=== PATIENT | male | born 1995 | race African-American/Black ===

== ENCOUNTER 2019-06-12 12:21 | Inpatient (IN) ==
[2019-06-12 12:45] LABS: Microscopic, Urine URINE MICROSCOPIC (MICROSCOPIC)
[2019-06-12 12:46] LABS: Appearance,Urine SL CLOUDY (Clear); Bilirubin,Urine Negative (Negative); Blood, Urine 2+ (Negative); Color,Urine YELLOW (Yellow); Glucose,Urine (UA) Negative (Negative); Ketones,Urine Negative (Negative); Leukocyte Esterase,Urine 2+ (Negative); Protein,Urine 2+ (Negative); Urobilinogen,Urine 0.2 EU/dl (0.2)
--- NOTE | 2019-06-12 12:51 | Emergency Department Note ---
ED Disposition Clinical Impression: UTI (urinary tract infection) Qualifiers: Urinary tract infection type: acute cystitis Hematuria presence: with hematuria Qualified Code(s): N30.01 - Acute cystitis with hematuria Fever Qualifiers: Fever type: due to other condition Qualified Code(s): R50.81 - Fever presenting with conditions classified elsewhere Disposition: Admitted As Inpatient Condition on Discharge: Good - Critical Care Critical Care Time: No Attestation: On 06/12/19, the high probability of a clinically significant, sudden or life threatening deterioration of the following system(s) required my full and direct attention, intervention and personal management. The time I documented below is in addition to time spent performing reported procedures but includes the following listed in this critical care notation. Medical Decision Making - Medical Records Medical records reviewed: Yes: I reviewed the patient's medical records. - Rommel Inquiry Pt receiving controlled substance: Yes Rommel was queried for this patient: No Reason not queried -: Rommel login issues Risks and benefits of using a controlled substance: were discussed with pt by me Vital Signs: 06/12/19 12:29 Temperature 100.9 F H Temperature Source Oral Pulse Rate [Left Radial] 115 H Respiratory Rate 24 Blood Pressure [Right Arm] 150/90 H Blood Pressure Mean [Right Arm] 110 02 Sat by Pulse Oximetry 98 Oxygen Delivery Method Room Air - Lab Data Lab Results 06/12/19 12:30: Urine Color Yellow, Urine Appearance Sl cloudy, Urine pH 6.0, Ur Specific [place] 1.020, Urine Protein 2+, Urine Glucose (UA) Negative, Urine K etones Negative, Urine Blood 2+, Urine Nitrate Positive, Urine Bilirubin Negative, Urine Urobilinogen 0.2, Ur Leukocyte Esterase 2+ A, Urine RBC 5-10, Urine WBC 10-20, Ur Squamous Epith Cells 3-5, Urine Bacteria 2+ 06/12/19 12:44: WBC 10.0, RBC 4.97, Hgb 15.4, Hct 44.4, MCV 89.5, MCH 31.1, MCHC 34.8, RDW 14.0, Plt Count 186, MPV 9.3, Neut % (Auto) 81.5 H, Lymph % (Auto) 10.1, [place] % (Auto) 6.7, Eos % (Auto) 1.4, Baso % (Auto) 0.2, Neut # (Auto) 8.2 H, Lymph # (Auto) 1.0, [place] # (Auto) 0.7, Eos # (Auto) 0.1, Baso # (Auto) 0.0 06/12/19 12:44: Sodium 135 L, Potassium 4.1, Chloride 97 L, Carbon Dioxide 26, Anion Gap 16.1 H, BUN 15, Creatinine 2.05 H, Estimated Creat Clear 65, Estimated GFR 40 L, Est GFR ( Amer) 49 L, Glucose 103, Calcium 9.4, Lipase 65 L 06/12/19 12:44: Lactate 1.0 06/12/19 12:44: Total Bilirubin 0.6, Direct Bilirubin 0.2, Indirect Bilirubin 0.4, AST 19, ALT 34, Alkaline Phosphatase 93, Total Protein 8.9 H, Albumin 4.6 Result diagrams: 06/12/19 12:44 06/12/19 12:44 Orders (Tests/Meds): ED MEDICATIONS Discontinued Medications Generic Name Dose Route Start Last Admin Trade Name Freq PRN Reason Stop Dose Admin Acetaminophen 1,000 mg 06/12/19 12:34 06/12/19 12:51 Tylenol 500mg Tablet PO 06/12/19 12:35 1,000 mg ONCE ONE Administration Sodium Chloride 1,000 mls @ 999 mls/hr 06/12/19 12:45 06/12/19 12:51 Sod Chlor 0.9% 1000ml Bag IV 06/12/19 13:45 999 mls/hr .[id number] RAMAN Administration Ceftriaxone Sodium 1 gm/ 50 mls @ 100 mls/hr 06/12/19 12:35 06/12/19 12:51 Sodium Chloride IV 06/12/19 13:04 100 mls/hr ONCE STA Administration Protocol Morphine Sulfate 4 mg 06/12/19 12:35 06/12/19 12:51 Morphine 4mg/Ml Syringe IV 06/12/19 12:36 4 mg ONCE ONE Administration Ondansetron HCl 4 mg 06/12/19 13:00 06/12/19 13:02 Zofran 4mg/2ml Vial IV 06/12/19 13:01 4 mg ONCE ONE Administration ORDERS Category Date Time Status CT abdomen pelvis wo con Stat Cat Scan 06/12/19 13:10 Taken Blood Culture Stat Micro 06/12/19 12:44 Received Urine Culture Stat Micro 06/12/19 12:30 Received - CT Data CT Scan: Abdomen, Pelvis Time Received: 14:[address] Reviewed: Yes: I discussed the CT results w/the radiologist Findings Narrative: Patient with dilation of the right ureter which goes into a diverticulum at the bladder, all of which is slightly thickened. No obvious stone. Medical Decision Narrative: Patient's mother states he has a long history of problems with his right renal system. She is uncertain what other CT scans have shown, but does know that he has chronic issues with UTI secondary to problems on this side. He has already tried Bactrim, amoxicillin for UTI and has recalcitrant UTI. Will need admission for IV antibiotics. Creatinine is actually better than baseline according to the mother with a creatinine here of 2 and his baseline being around 4. He is given fluids, Rocephin. I discussed this case with Dr. Sun, admitting for Dr. Euceda, and patient will be admitted for further management. There are no signs of appendicitis, bowel obstruction, perforation, diverticulitis on CT scan. General Adult HPI - General Chief complaint: PAIN Stated complaint: fever and severe pain in rt side Time Seen by Provider: 06/12/19 12:49 Mode of Arrival: Ambulatory Limitations: No Limitations Description of Symptoms (Recalled from ER Triage Doc. by RN): to ed per pvt car with c/o rt side pain starting yesterday pt c/o nausea, fever. pt states took tylenol at 9am. - History of Present Illness HPI narrative: This is a 23-year-old male with a past medical history significant for HIV, schizophrenia who presents to the emergency department for right side pain that started yesterday. Whenever he urinates, the pain is worse. He is also had subjective fever and chills today at home. He has nausea, but no vomiting. He cannot remember the last bowel movement. No history of abdominal surgeries. He takes Bactrim daily prophylactically. No other exacerbating or alleviating factors. Caregiver notes that he did just recently finished a course of amoxici llin for a UTI. He has chronic problems with his right kidney and collecting system, history of frequent UTIs, and chronic renal failure with a normal creatinine of around 4. - Related Data Home Medications Medication Instructions Recorded Confirmed Abacavir/Dolutegravir/Lamivudi 1 tab PO DAILY 06/12/19 06/12/19 [Triumeq 600-50-300 mg Tablet] Benztropine Mesylate 0.5 mg PO BID 06/12/19 06/12/19 Sulfamethoxazole/Trimethoprim 1 each PO BID 06/12/19 06/12/19 [Bactrim DS tablet] risperiDONE [Risperidone] 3 mg PO BID 06/12/19 06/12/19 Allergies Allergy/AdvReac Type Severity Reaction Status Date / Time No Known Allergies Allergy Verified 06/12/19 12:48 [facility] History - Hepatitis A Screen Drug use history?: No High risk sexual behaviors?: No History of sexually transmitted infection?: No Currently employed?: No Childcare worker?: No Do you have indoor plumbing?: Yes Do you have electricity?: Yes Attestation statement:: This patient has been screened for Hepatitis A risk factors. I have reviewed the patient's past medical history: Yes Comment: HIV, schizophrenia - Social History Alcohol Intake: never Occupational Status: other ROS Obtained: Yes All systems reviewed & no additional complaints Physical Exam - General General appearance: alert, in distress, other (In mild distress secondary to pain) - Head Head exam: atraumatic, normocephalic, normal inspection - ENT ENT exam: Present: normal oropharynx, mucous membranes dry - Neck Neck exam: Present: normal inspection. Absent: tenderness, lymphadenopathy - Respiratory Respiratory exam: Present: normal lung sounds bilaterally. Absent: respiratory distress - Cardiovascular Cardiovascular exam: Present: normal rhythm, tachycardia. Absent: JVD - Abdominal Exam Abdominal exam: Present: soft, normal bowel sounds. Absent: distention, tenderness, guarding - Back Exam Back exam: Absent: CVA tenderness (R), CVA tenderness (L) - Neurological Exam Neurological exam: Present: alert, oriented X3 - Skin Skin exam: Present: warm, dry
[2019-06-12 12:53] LABS: Basophils % 0.2 % (0.1-2.0); Eosinophils # 0.1 K/mm3 (0.0-0.4); Eosinophils % 1.4 % (0.1-12.0); Hematocrit 44.4 % (42.0-52.0); Hemoglobin 15.4 g/dL (14.1-18.0); Lymphocytes % 10.1 % (10-50); Mean Corpuscular HGB Conc 34.8 g/dL (31.8-35.4); Mean Corpuscular Volume 89.5 fl (80-94); Mean Platelet Volume 9.3 fl (7.4-10.4); Monocytes # 0.7 K/mm3 (0.1-1.0); Monocytes % 6.7 % (1.7-9.3); Neutrophils # 8.2 K/mm3 (1.8-7.8); Neutrophils % 81.5 % (37.0-80.0); Platelet Count 186 K/mm3 (142-424); Red Blood Count 4.97 M/mm3 (4.60-6.20)
[2019-06-12 12:56] LABS: Bacteria,Urine 2+ /lpf
[2019-06-12 13:01] LABS: Anion Gap 16.1 mEq/L (5-15); Calcium 9.4 mg/dL (8.5-10.1)
[2019-06-12 13:07] LABS: Albumin Level 4.6 gm/dL (3.4-5.0); Bilirubin,Direct 0.2 mg/dL (0.0-0.2); Bilirubin,Indirect 0.4 mg/dL (0.0-0.9); Bilirubin,Total 0.6 mg/dL (0.2-1.0); Total Protein,Serum 8.9 gm/dL (6.4-8.2)
--- NOTE | 2019-06-12 15:07 | Pharmacy Consult Notes ---
[facility] Pharmacy VTE Monitoring - Patient Demographics Admission date: 06/12/19 Report Date: 06/12/19 Time: 15:06 Allergies/Adverse Reactions: Patient Allergies No Known Allergies Allergy (Verified 06/12/19 12:48) Height: 1.65 m Weight: 82.554 kg Patient Problems: Current Active Problems UTI (urinary tract infection) (Acute) Fever (Acute) - VTE Risk Labs: VTE Related Lab Results Hgb 15.4 g/dL (14.1-18.0) 06/12/19 12:44 Hct 44.4 % (42.0-52.0) 06/12/19 12:44 Plt Count 186 K/mm3 (142-424) 06/12/19 12:44 BUN 15 mg/dL (7-18) 06/12/19 12:44 Creatinine 2.05 mg/dL (0.70-1.30) H 06/12/19 12:44 Estimated Creat Clear 65 mL/min (50-200) 06/12/19 12:44 Clinical Trial Participant: No - Prophylaxis VTE Prophylaxis Ordered?: Yes Types of VTE Prophylaxis: TEDS Knee High, IPCS Knee High
--- NOTE | 2019-06-12 17:52 | History & Physical Report ---
*Admission Date: 06/12/19 *Chief complaint: Fever and right flank pain *History of present illness: 23-year-old male with schizophrenia, HIV, and history of recurring urinary tract infections for which he is on prophylaxis with Bactrim presented to the ER with right flank pain and fevers at home. He has not had associated nausea, vomiting, diarrhea. Patient has been taking his Bactrim for prophylaxis as directed and just completed a course of amoxicillin for a urinary tract infection. Guardian is unaware if there was a urine culture associated with treatment of that infection. Nonetheless when his symptoms began he was brought to the emergency department and diagnosed with a urinary tract infection. Patient was febrile in the ER. CT scan showed dilation of the right ureter along with a bladder diverticulum in the right bladder. Patient was given intravenous Rocephin and admitted for IV fluids, pain control and treatment of urinary tract infection that has failed outpatient treatment [facility] History I have reviewed the patient's past medical history: Yes Medical History: Reports:: Urinary Tract Infection Denies:: Cancer, Diabetes Mellitus Type 1, Diabetes Mellitus Type 2, MRSA *Have you ever received a pneumonia vaccine?: Yes *Have you received a flu vaccine this season?: Yes Other Medical History: Reports: HIV Other Surgeries: Yes: No Previous Surgery Amputation: No Fractures: No - *Social History Educational Level: Completed High School Smoking Status: Never smoker Alcohol Intake: never *Occupational Status:: other Housing: house Household Members: family *Travel in the last 8 weeks: None - Psychiatric History Pschychiatric History:: Reports:: Schizophrenia Family Hx:: Adopted, Mental illness Review of Systems - Constitutional Denies body ache(s), Denies chills, Denies lack of energy, Denies malaise - *Cardiovascular Denies chest pain at rest - *Respiratory Denies change in phlegm color - *Gastrointestinal Reports abdominal pain, Denies change in bowel habits - *Genitourinary Reports side pain, Denies difficulty urinating, Denies painful urination Meds Home Medications Medication Instructions Recorded Confirmed Type Abacavir/Dolutegravir/Lamivudi 1 tab PO DAILY 06/12/19 06/12/19 History [Triumeq 600-50-300 mg Tablet] Benztropine Mesylate 0.5 mg PO BID 06/12/19 06/12/19 History Sulfamethoxazole/Trimethoprim 1 each PO BID 06/12/19 06/12/19 History [Bactrim DS tablet] risperiDONE [Risperidone] 3 mg PO BID 06/12/19 06/12/19 History Allergies Allergy/AdvReac Type Severity Reaction Status Date / Time No Known Allergies Allergy Verified 06/12/19 12:48 Exam Vital signs and Labs for Last 24 Hours: Temp Pulse Resp BP Pulse Ox 102.5 F H 143 H 22 159/100 H 93 L 06/12/19 17:25 06/12/19 16:00 06/12/19 16:00 06/12/19 16:00 06/12/19 16:00 Laboratory Results - last 24 hr 06/12/19 12:30: Urine Color Yellow, Urine Appearance Sl cloudy, Urine pH 6.0, Ur Specific [place] 1.020, Urine Protein 2+, Urine Glucose (UA) Negative, Urine Ketones Negative, Urine Blood 2+, Urine Nitrate Positive, Urine Bilirubin Negative, Urine Urobilinogen 0.2, Ur Leukocyte Esterase 2+ A, Urine RBC 5-10, Urine WBC 10-20, Ur Squamous Epith Cells 3-5, Urine Bacteria 2+ 06/12/19 12:44: WBC 10.0, RBC 4.97, Hgb 15.4, Hct 44.4, MCV 89.5, MCH 31.1, MCHC 34.8, RDW 14.0, Plt Count 186, MPV 9.3, Neut % (Auto) 81.5 H, Lymph % (Auto) 10.1, [place] % (Auto) 6.7, Eos % (Auto) 1.4, Baso % (Auto) 0.2, Neut # (Auto) 8.2 H, Lymph # (Auto) 1.0, [place] # (Auto) 0.7, Eos # (Auto) 0.1, Baso # (Auto) 0.0 06/12/19 12:44: Sodium 135 L, Potassium 4.1, Chloride 97 L, Carbon Dioxide 26, Anion Gap 16.1 H, BUN 15, Creatinine 2.05 H, Estimated Creat Clear 65, Estimated GFR 40 L, Est GFR ( Amer) 49 L, Glucose 103, Calcium 9.4, Lipase 65 L 06/12/19 12:44: Lactate 1.0 06/12/19 12:44: Total Bilirubin 0.6, Direct Bilirubin 0.2, Indirect Bilirubin 0.4, AST 19, ALT 34, Alkaline Phosphatase 93, Total Protein 8.9 H, Albumin 4.6 I & O for Last 24 hours: Intake & Output 06/10/19 06/11/19 06/12/19 06/13/19 11:59 11:59 11:59 11:59 Weight 182 lb 4 oz Narrative: Patient is in no distress and sitting on side of the bed. He is warm to the touch. Pupils are reactive to light. Oropharynx is moist and clear. Neck has no lymphadenopathy. Lungs are clear. Heart rate is tachycardic. Abdomen is soft, nontender, nondistended. There is no CVA tenderness. Extremities are warm to the touch. Assessment and Plan (1) Complicated urinary tract infection Current visit: Yes Status: Acute Category: Medical Code(s): N39.0 - Urinary tract infection, site not specified Patient is been admitted and placed on IV Rocephin and IV normal saline. Continue fluids overnight. (2) HIV disease Current visit: Yes Status: Chronic Category: Medical Code(s): B20 - Human immunodeficiency virus [HIV] disease Continue home medications (3) Schizophrenia Current visit: Yes Status: Chronic Category: Medical Code(s): F20.9 - Schizophrenia, unspecified Continue home medications
[2019-06-13 06:35] LABS: Basophils % 0.2 % (0.1-2.0); Eosinophils % 0.1 % (0.1-12.0); Hematocrit 36.7 % (42.0-52.0); Lymphocytes # 1.1 K/mm3 (0.7-4.5); Lymphocytes % 8.3 % (10-50); Mean Corpuscular Volume 89.7 fl (80-94); Mean Platelet Volume 10.1 fl (7.4-10.4); Monocytes # 1.4 K/mm3 (0.1-1.0); Monocytes % 10.5 % (1.7-9.3); Neutrophils # 11.1 K/mm3 (1.8-7.8); Neutrophils % 80.9 % (37.0-80.0); Platelet Count 139 K/mm3 (142-424); Red Blood Count 4.09 M/mm3 (4.60-6.20); Red Cell Distribution Width 13.9 % (11.5-17.5); White Blood Count 13.7 K/mm3 (4.8-10.8)
[2019-06-13 06:58] LABS: Albumin Level 3.2 gm/dL (3.4-5.0); Albumin/Globulin Ratio 0.9 (1.1-1.8); Anion Gap 15.6 mEq/L (5-15); Bilirubin,Total 0.5 mg/dL (0.2-1.0); Globulin 3.7 gm/dl (1.3-3.2); Total Protein,Serum 6.9 gm/dL (6.4-8.2)
[2019-06-13 07:46] LABS: Hemoglobin 12.6 g/dL (14.1-18.0)
--- NOTE | 2019-06-13 08:31 | Progress Note ---
Internal Medicine - PN: Subj *Date: 06/13/19 *Time: 08:30 Interval history: Patient did well overnight. Feels much better. Has been eating some breakfast. He has no complaints. Exam Vital signs and Labs for Last 24 Hours: Temp Pulse Resp BP Pulse Ox 99.1 F 102 H 22 137/66 99 06/13/19 08:00 06/13/19 08:00 06/13/19 08:00 06/13/19 08:00 06/13/19 08:00 Laboratory Results - last 24 hr 06/12/19 12:30: Urine Color Yellow, Urine Appearance Sl cloudy, Urine pH 6.0, Ur Specific [place] 1.020, Urine Protein 2+, Urine Glucose (UA) Negative, Urine Ketones Negative, Urine Blood 2+, Urine Nitrate Positive, Urine Bilirubin Negative, Urine Urobilinogen 0.2, Ur Leukocyte Esterase 2+ A, Urine RBC 5-10, Urine WBC 10-20, Ur Squamous Epith Cells 3-5, Urine Bacteria 2+ 06/12/19 12:44: WBC 10.0, RBC 4.97, Hgb 15.4, Hct 44.4, MCV 89.5, MCH 31.1, MCHC 34.8, RDW 14.0, Plt Count 186, MPV 9.3, Neut % (Auto) 81.5 H, Lymph % (Auto) 10.1, [place] % (Auto) 6.7, Eos % (Auto) 1.4, Baso % (Auto) 0.2, Neut # (Auto) 8.2 H, Lymph # (Auto) 1.0, [place] # (Auto) 0.7, Eos # (Auto) 0.1, Baso # (Auto) 0.0 06/12/19 12:44: Sodium 135 L, Potassium 4.1, Chloride 97 L, Carbon Dioxide 26, Anion Gap 16.1 H, BUN 15, Creatinine 2.05 H, Estimated Creat Clear 65, Estimated GFR 40 L, Est GFR ( Amer) 49 L, Glucose 103, Calcium 9.4, Lipase 65 L 06/12/19 12:44: Lactate 1.0 06/12/19 12:44: Total Bilirubin 0.6, Direct Bilirubin 0.2, Indirect Bilirubin 0.4, AST 19, ALT 34, Alkaline Phosphatase 93, Total Protein 8.9 H, Albumin 4.6 06/13/19 06:05: WBC 13.7 H D, RBC 4.09 L, Hgb 12.6 L D, Hct 36.7 L, MCV 89.7, MCH 30.5, MCHC 34.0, RDW 13.9, Plt Count 139 L D, MPV 10.1, Neut % (Auto) 80.9 H , Lymph % (Auto) 8.3 L, [place] % (Auto) 10.5 H, Eos % (Auto) 0.1, Baso % (Auto) 0.2, Neut # (Auto) 11.1 H, Lymph # (Auto) 1.1, [place] # (Auto) 1.4 H, Eos # (Auto) 0.0, Baso # (Auto) 0.0 06/13/19 06:05: Sodium 135 L, Potassium 3.6, Chloride 101, Carbon Dioxide 22, Anion Gap 15.6 H, BUN 16, Creatinine 2.01 H, Estimated Creat Clear 64, Estimated GFR 41 L, Est GFR ( Amer) 50 L, Glucose 111 H, Total Bilirubin 0.5, AST 19, ALT 28, Alkaline Phosphatase 75, Total Protein 6.9, Albumin 3.2 L D, Globulin 3.7 H, Albumin/Globulin Ratio 0.9 L I & O for Last 24 hours: Intake & Output 06/10/19 06/11/19 06/12/19 06/13/19 11:59 11:59 11:59 11:59 Intake Total 2083 / 2083 Output Total 250 / 250 Balance 1833 / 1833 Weight 175 lb 5 oz Microbiology Reports for the Last 24 Hours: Microbiology 06/12/19 12:30 Urine,Clean Catch Urine Culture - Preliminary Gram Negative Rods Narrative: Pleasant, responsive. Somewhat stoic with lack of conversation but that seems to be his normal affect. Anterior lung [place] are clear. Heart rate regular. No JVD. ENT exam otherwise clear. No peripheral edema or rash noted. Abdomen soft and nontender. Logic exam intact Assessment and Plan (1) Complicated urinary tract infection Current visit: Yes Status: Acute Category: Medical Code(s): N39.0 - Urinary tract infection, site not specified (2) HIV disease Current visit: Yes Status: Chronic Category: Medical Code(s): B20 - Human immunodeficiency virus [HIV] disease (3) Schizophrenia Current visit: Yes Status: Chronic Category: Medical Code(s): F20.9 - Schizophrenia, unspecified - Assessment and plan all Dx Assessment and Plan for all problems:: Gram-negative rods in urine. Continue aggressive IV antibiotic therapy. Chronic kidney disease seems to be at baseline in fact mom states his creatinine is better than it was at nephrology office last week
[2019-06-13 08:34] LABS: Calcium 8.3 mg/dL (8.5-10.1)
--- NOTE | 2019-06-14 08:35 | Discharge Summary ---
General - General Admission date:: 06/12/19 Discharge date: 06/14/19 HPI HPI: 23-year-old male with schizophrenia, HIV, and history of recurring urinary tract infections for which he is on prophylaxis with Bactrim presented to the ER with right flank pain and fevers at home. He has not had associated nausea, vomiting, diarrhea. Patient has been taking his Bactrim for prophylaxis as directed and just completed a course of amoxicillin for a urinary tract infection. Guardian is unaware if there was a urine culture associated with treatment of that infection. Nonetheless when his symptoms began he was brought to the emergency department and diagnosed with a urinary tract infection. Patient was febrile in the ER. CT scan showed dilation of the right ureter along with a bladder diverticulum in the right bladder. Patient was given intravenous Rocephin and admitted for IV fluids, pain control and treatment of urinary tract infection that has failed outpatient treatment Hospital Course Hospital Course: Patient was admitted, tolerated IV fluids well. Creatinine stabilized at 2.0 which is apparently better than his baseline according to his mother. Patient was treated with ceftriaxone and he also tolerated this well. Urine cultures returned showing greater than 100,000 colonies of Enterobacter species, resistant to amoxicillin/Augmentin but sensitive to cephalosporins. This morning he was given 1 more dose of intravenous ceftriaxone, and I will discharge him on 7 days of cefdinir 300 twice daily. 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 Objective Vital signs: Temp Pulse Resp BP Pulse Ox 98.6 F 85 20 122/71 98 06/14/19 07:57 06/14/19 07:57 06/14/19 07:57 06/14/19 07:57 06/14/19 07:57 Narrative: Patient is pleasant, talkative. No distress. Lungs are clear, heart rate regular. Abdomen soft. Oropharynx clear. ENT exam otherwise clear. Neurologically intact. Results Labs on day of discharge: Labs from last 24 hours 06/13/19 06:05 Calcium 8.3 L D DS: Diagnosis - Discharge Diagnosis (1) Complicated urinary tract infection Status: Acute (2) HIV disease Status: Chronic (3) Schizophrenia Status: Chronic Discharge Plan - Patient Discharge Instructions ACTIVITY: Continue current activity DIET: continue same diet Patient Instructions: DI for HIV, DI for Urinary Tract Infection (UTI) - Follow up Plan Disposition: Home, Self-Fdc Medications: Home Medications Medication Instructions Recorded Confirmed Type Abacavir/Dolutegravir/Lamivudi 1 tab PO DAILY 06/12/19 06/12/19 History [Triumeq 600-50-300 mg Tablet] Benztropine Mesylate 0.5 mg PO BID 06/12/19 06/12/19 History Sulfamethoxazole/Trimethoprim 1 each PO BID 06/12/19 06/12/19 History [Bactrim DS tablet] risperiDONE [Risperidone] 3 mg PO BID 06/12/19 06/12/19 History Cefdinir [Omnicef 300mg Capsule] 300 mg PO BID #14 cap 06/14/19 Rx Prescriptions/Medication Reconciliation: New Cefdinir [Omnicef 300mg Capsule] 300 mg PO BID #14 cap Continued Sulfamethoxazole/Trimethoprim [Bactrim DS tablet] 1 each PO BID risperiDONE [Risperidone] 3 mg PO BID Benztropine Mesylate 0.5 mg PO BID Abacavir/Dolutegravir/Lamivudi [Triumeq 600-50-300 mg Tablet] 1 tab PO DAILY - Problem Reconciliation Problems Reviewed?: Yes
== END 2019-06-14 10:58 | disposition home or self-care (01) | DRG 690 ==
LOC: ER 12:21 → 2ND 12:21 → OBSVTOIN 14:39 → 2ND 15:25
PROVIDERS: ADMIT Family Medicine; ATTEND Internal Medicine Adolescent Medicine
CPT/HCPCS: 36415; 74176; 80048; 80053; 80076; 81001; 83605; 83690; 85025; 87040; 87086; 87088; 87186; 96365; 96367; 96375; 99284; J2405

== ENCOUNTER → 2019-06-23 15:26 | Outpatient (CLI) | payer MEDICARE, MEDICAID, SELFPAY ==
[2019-06-23 15:30] LABS: Microscopic, Urine URINE MICROSCOPIC (MICROSCOPIC)
[2019-06-23 15:47] LABS: Appearance,Urine CLEAR (Clear); Bilirubin,Urine Negative (Negative); Blood, Urine Negative (Negative); Color,Urine YELLOW (Yellow); Glucose,Urine (UA) Negative (Negative); Ketones,Urine Negative (Negative); Leukocyte Esterase,Urine Negative (Negative); Nitrate,Urine Negative (Negative); PH,Urine 6.5 (5.0-8.5); Protein,Urine Negative (Negative); Urobilinogen,Urine 0.2 EU/dl (0.2)
[2019-06-23 15:54] LABS: Basophils % 0.9 % (0.1-2.0); Eosinophils # 0.1 K/mm3 (0.0-0.4); Eosinophils % 1.7 % (0.1-12.0); Hematocrit 42.1 % (42.0-52.0); Hemoglobin 13.1 g/dL (14.1-18.0); Lymphocytes # 2.6 K/mm3 (0.7-4.5); Lymphocytes % 58.2 % (10-50); Mean Corpuscular HGB Conc 31.2 g/dL (31.8-35.4); Mean Corpuscular Hemoglobin 28.7 pg (27.0-31.2); Mean Platelet Volume 8.4 fl (7.4-10.4); Monocytes # 0.3 K/mm3 (0.1-1.0); Monocytes % 6.3 % (1.7-9.3); Neutrophils # 1.5 K/mm3 (1.8-7.8); Neutrophils % 32.9 % (37.0-80.0); Platelet Count 350 K/mm3 (142-424); Red Blood Count 4.58 M/mm3 (4.60-6.20); Red Cell Distribution Width 15.1 % (11.5-17.5); White Blood Count 4.5 K/mm3 (4.8-10.8)
[2019-06-23 15:58] LABS: MANUAL DIFFERENTIAL MANUAL DIFFERENTIAL (MANUAL DIFF)
[2019-06-23 16:15] LABS: WBC,Urine Occasional #/hpf (0-3)
[2019-06-23 16:16] LABS: Bacteria,Urine Trace /lpf
[2019-06-23 16:25] LABS: Alanine Aminotransferase 64 U/L (12-78); Albumin Level 3.8 gm/dL (3.4-5.0); Albumin/Globulin Ratio 1.2 (1.1-1.8); Alkaline Phosphatase 83 U/L (46-116); Anion Gap 13.2 mEq/L (5-15); Aspartate Amino Transferase 21 U/L (15-37); Bilirubin,Total 0.1 mg/dL (0.2-1.0); Blood Urea Nitrogen 12 mg/dL (7-18); Calcium 8.7 mg/dL (8.5-10.1); Carbon Dioxide 27 mmol/L (21.0-32.0); Chloride 105 mmol/L (98-107); Creatinine,Serum 1.44 mg/dL (0.70-1.30); Estimated Glomerular Filt Rate 60 ml/min (>60); GFR (African American) 73 ML/MIN (>60); Globulin 3.3 gm/dl (1.3-3.2); Glucose 100 mg/dL (74-106); Potassium 4.2 mmoL/L (3.5-5.1); Sodium 141 mmol/L (136-145); Total Protein,Serum 7.1 gm/dL (6.4-8.2)
[2019-06-23 18:24] LABS: Eosinophils % 1 % (0-3); Lymphocytes % 76 % (10-50); Monocytes % 3 % (2-9); Neutrophils % 20 % (42-76); Platelet Estimate Normal; RBC Morphology Normal; Total Cells Counted 100
== END ==
PROVIDERS: Visit Provider Internal Medicine Adolescent Medicine
DX: N12 Tubulo-interstitial nephritis, not specified as acute or chronic (principal); N18.3 Chronic kidney disease, stage 3 (moderate)
CPT/HCPCS: 36415; 80053; 81001; 85007; 85025

== ENCOUNTER 2020-04-15 23:49 | Emergency (ER) | payer MEDICARE, MEDICAID, SELFPAY ==
[2020-04-16] VITALS (10 sets, daily range): BP systolic 119–129; BP diastolic 67–93; PULSE 98–154; RESP 16–18; TEMP 38.8–39.4; O2SAT 95–98; BMI 29.1
--- NOTE | 2020-04-16 00:13 | XR_ITS ---
PROCEDURE: XR CHEST 2V CLINICAL HISTORY: fever COMPARISON: No exams were available for comparison FINDINGS: The cardiomediastinal silhouette and pulmonary vascularity are within normal limits. The lungs are clear without infiltrates, suspicious nodules, or pleural effusions. No acute bony abnormalities. IMPRESSION: No acute findings. Dictated by: Wilbur Almendarez MD 04/16/2020 05:03 Wilbur Almendarez MD in [place] 04/16/2020 05:03
--- NOTE | 2020-04-16 00:36 | [facility].EDGENADL ---
ED Disposition Clinical Impression: UTI (urinary tract infection) Qualifiers: Urinary tract infection type: acute pyelonephritis Qualified Code(s): N10 - Acute pyelonephritis Disposition: Home, Self-Care Condition on Discharge: Fair Instructions: DI for Urinary Tract Infection (UTI), DI for Fever (Symptom) -- Adult Additional Instructions: Continue Tylenol, 1000 mg every 6 hours for fever. Omnicef as prescribed. Follow-up with Dr. Euceda in the office, call today to arrange follow-up. Additional instructions for URINARY TRACT INFECTION: Take antibiotic as prescribed. See your physician in 2-3 days for follow up and culture results. Return immediately if you have an uncontrollable fever greater than 102 degrees, severe back or abdominal pain, inability to urinate, or repetitive vomiting. Prescriptions: Cefdinir [Omnicef 300mg Capsule] 300 mg PO BID #20 cap Transmission Status: Pending to [facility] #[id number] Referrals: Peewee Euceda MD [Primary Care Provider] - - Critical Care Critical Care Time: No Attestation: On 04/15/20, the high probability of a clinically significant, sudden or life threatening deterioration of the following system(s) required my full and direct attention, intervention and personal management. The time I documented below is in addition to time spent performing reported procedures but includes the following listed in this critical care notation. Medical Decision Making - Medical Records Medical records reviewed: Yes: I reviewed the patient's medical records. MR Dominguez: Admitted May 2019 at this facility for UTI with fever. Urine analysis looked similar at that time. Culture showed Enterobacter and he was treated with Rocephin and discharged on Omnicef for 7 days. - Rom[place] Inquiry Pt receiving controlled substance: No Vital Signs: 04/16/20 00:00 04/16/20 00:02 04/16/20 00:30 Temperature 102.9 F H Temperature Source Oral Pulse Rate [Right Brachial] 154 H 154 H 133 H Respiratory Rate 18 16 18 Blood Pressure [Right Arm] 119/72 119/72 129/75 Blood Pressure Mean [Right Arm] 87 87 93 Blood Pressure Source [Right Arm] Automatic Cuff Automatic Cuff Automatic Cuff Blood Pressure Position [Right Arm] Supine Sitting Supine 02 Sat by Pulse Oximetry 95 95 95 Oxygen Delivery Method Room Air Room Air Room Air 04/16/20 01:00 04/16/20 01:30 Temperature Temperature Source Pulse Rate [Right Brachial] 120 H 116 H Respiratory Rate 17 17 Blood Pressure [Right Arm] 119/77 120/76 Blood Pressure Mean [Right Arm] 91 90 Blood Pressure Source [Right Arm] Automatic Cuff Automatic Cuff Blood Pressure Position [Right Arm] Supine Supine 02 Sat by Pulse Oximetry 95 96 Oxygen Delivery Method Room Air Room Air - Lab Data Lab results reviewed: Yes: I reviewed the patient's lab results. Lab Results 04/16/20 00:05: WBC 13.3 H, RBC 5.18, Hgb 15.7, Hct 46.0, MCV 88.9, MCH 30.3, MCHC 34.0, RDW 14.3, Plt Count 177, MPV 9.6, Neut % (Auto) 81.5 H, Lymph % (Auto) 8.8 L, Scott % (Auto) 9.3, Eos % (Auto) 0.1, Baso % (Auto) 0.2, Neut # (Auto) 10.8 H, Lymph # (Auto) 1.2, Scott # (Auto) 1.2 H, Eos # (Auto) 0.0, Baso # (Auto) 0.0 04/16/20 00:05: Sodium 137, Potassium 3.8, Chloride 103, Carbon Dioxide 22, Anion Gap 15.8 H, BUN 12, Creatinine 1.80 H, Estimated Creat Clear 70, Estimated GFR 46 L, Est GFR ( Amer) 56 L, Glucose 137 H, Calcium 9.7, Total Bilirubin 0.7, AST 31, ALT 27, Alkaline Phosphatase 92, Total Protein 8.5 H, Albumin 4.8, Globulin 3.7 H, Albumin/Globulin Ratio 1.3 04/16/20 00:05: Lactate 1.1 04/16/20 00:05: SARS-CoV-2 IgG Ab (Rapid) Negative, SARS-CoV-2 IgM Ab (Rapid) Negative 04/16/20 01:55: Urine Color Yellow, Urine Appearance Clear, Urine pH 6.0, Ur Specific [place] 1.025, Urine Protein 1+, Urine Glucose (UA) Negative, Urine Ketones Negative, Urine Blood 1+, Urine Nitrate Negative, Urine Bilirubin Negative, Urine Urobilinogen 0.2, Ur Leukocyte Esterase 1+ A, Urine RBC 3-5,
[2020-04-16 00:38] LABS: Lactic Acid 1.1 mmol/L (0.7-2.1)
[2020-04-16 00:39] LABS: Alanine Aminotransferase 27 U/L (12-78); Albumin Level 4.8 g/dl (3.5-5.0); Albumin/Globulin Ratio 1.3 (1.1-1.8); Alkaline Phosphatase 92 U/L (38-126); Anion Gap 15.8 mEq/L (5-15); Aspartate Amino Transferase 31 U/L (17-59); Bilirubin,Total 0.7 mg/dl (0.2-1.3); Blood Urea Nitrogen 12 mg/dl (9-20); Calcium 9.7 mg/dl (8.4-10.2); Carbon Dioxide 22 mmol/L (22.0-30.0); Chloride 103 mmol/L (98-107); Creatinine Clearance Estimated 70 mL/min (50-200); Estimated Glomerular Filt Rate 46 ml/min (>60); GFR (African American) 56 ML/MIN (>60); Globulin 3.7 g/dL (1.3-3.2); Glucose 137 mg/dl (74-100); Potassium 3.8 mmoL/L (3.5-5.1); Sodium 137 mmol/L (136-145); Total Protein,Serum 8.5 g/dl (6.3-8.2)
[2020-04-16 00:49] LABS: Basophils % 0.2 % (0.1-2.0); Eosinophils % 0.1 % (0.1-12.0); Hemoglobin 15.7 g/dL (14.1-18.0); Lymphocytes # 1.2 K/mm3 (0.7-4.5); Lymphocytes % 8.8 % (10-50); Mean Corpuscular Hemoglobin 30.3 pg (27.0-31.2); Mean Corpuscular Volume 88.9 fl (80-94); Mean Platelet Volume 9.6 fl (7.4-10.4); Monocytes # 1.2 K/mm3 (0.1-1.0); Monocytes % 9.3 % (1.7-9.3); Neutrophils # 10.8 K/mm3 (1.8-7.8); Neutrophils % 81.5 % (37.0-80.0); Platelet Count 177 K/mm3 (142-424); Red Blood Count 5.18 M/mm3 (4.60-6.20); Red Cell Distribution Width 14.3 % (11.5-17.5); White Blood Count 13.3 K/mm3 (4.8-10.8)
[2020-04-16 01:27] LABS: Coronavirus 19 IgG Antibody Negative (Negative); Coronavirus 19 IgM Antibody Negative (Negative)
[2020-04-16 02:00] LABS: Microscopic, Urine URINE MICROSCOPIC (MICROSCOPIC)
--- NOTE | 2020-04-16 02:00 | ECG_ITS ---
APPROVED REPORT Exam: Resting ECG HR:110 bpm ECG Measurements Heart Rate 110 AXES [place] 174 P 63 QRSd 76 QRS 80 QT 314 T 36 QTc 424 Conclusion Sinus tachycardia Nonspecific T wave abnormality Abnormal ECG Electronically signed by : Peewee Euceda, 04/16/2020 14:32:44
[2020-04-16 02:04] LABS: Adenovirus,PCR Not Detected (NotDetected); Bordetella Pertussis Not Detected (NotDetected); Chlamydophila Pneumoniae, PCR Not Detected (NotDetected); Coronavirus 19, PCR Not Detected (NotDetected); Coronavirus 229E Not Detected (NotDetected); Coronavirus NL63 Not Detected (NotDetected); Coronavirus OC43 Not Detected (NotDetected); Coronovirus HKU1,PCR Not Detected (NotDetected); Human Metapneumovirus Not Detected (NotDetected); Influenza A, PCR Not Detected (NotDetected); Influenza AH1, 2009 Not Detected (NotDetected); Influenza AH1, PCR Not Detected (NotDetected); Influenza AH3,PCR Not Detected (NotDetected); Influenza B, PCR Not Detected (NotDetected); Mycoplasma Pneumoniae, PCR Not Detected (NotDetected); Parainfluenza 1, PCR Not Detected (NotDetected); Parainfluenza 2, PCR Not Detected (NotDetected); Parainfluenza 3, PCR Not Detected (NotDetected); Parainfluenza 4, PCR Not Detected (NotDetected); Respiratory Syncytial Virus Not Detected (NotDetected); Rhinovirus/Enterovirus Not Detected (NotDetected)
[2020-04-16 02:13] LABS: Appearance,Urine CLEAR (Clear); Bilirubin,Urine Negative (Negative); Blood, Urine 1+ (Negative); Color,Urine YELLOW (Yellow); Glucose,Urine (UA) Negative (Negative); Ketones,Urine Negative (Negative); Leukocyte Esterase,Urine 1+ (Negative); Nitrate,Urine Negative (Negative); Protein,Urine 1+ (Negative); Specific Gravity, Urine 1.025 (1.005-1.030); Urobilinogen,Urine 0.2 EU/dl (0.2)
[2020-04-16 02:21] LABS: Bacteria,Urine 1+ /lpf
== END 2020-04-16 03:45 | disposition home or self-care (01) ==
PROVIDERS: Emergency Provider Emergency Medicine; PCP Internal Medicine Adolescent Medicine
DX: N10 Acute pyelonephritis (principal); B20 Human immunodeficiency virus [HIV] disease; F20.9 Schizophrenia, unspecified; Z20.828 Contact with and (suspected) exposure to other viral communicable diseases
CPT/HCPCS: 71046; 80053; 81001; 83605; 85025; 86328; 87040; 87086; 87088; 87186; 87581; 87633; 87798; 93005; 96365; 99284; U0003